=== PATIENT | female | born 1985 | race Caucasian/White ===

== ENCOUNTER 2022-12-27 07:57 | Inpatient (IN) ==
[2022-12-27] MEDS ORDERED: OXYTOCIN 30 UNITS/500 ML BAG IV PRN ×3 (09:23→20:06)
[2022-12-27] MEDS ORDERED: LIDOCAINE 1% LOCAL 20 ML VIAL INFIL PRN (09:23)
[2022-12-27] MEDS ORDERED: BUTORPHANOL TARTRATE 1 MG/ML VIAL IV PRN (09:36)
--- NOTE | 2022-12-27 09:38 | History & Physical Report ---
Date of Service December 27, 2022 Assessment & Plan (1) Anti-D antibodies present during : (2) Need for rhogam due to Rh negative mother: (3) Tobacco smoking affecting : (4) complicated by subutex maintenance, antepartum: (5) Elderly multigravida: Plan Lucille is a 37 y/o female at GA 39 0/7 who presents today for induction of labor. -Plan to proceed with induction of labor, will start pitocin -A negative/GBS negative/Rubella immune -Currently 2-3cm/70%/-2, fetus cat 1 -UDS and CBC pending, COVID negative -Can proceed with epidural when desired, Stadol ordered Admission and Anticipated Discharge Date Admission Date: December 27, 2022 History of Present Illness Chief Complaint: IOL Primary Care Provider: NO PCP Lucille is a 37 y/o female at GA 39 0/7 who presents today for induction of labor due to maternal red cell alloimmunization for concern of anemia. She also has a known two vessel cord. Lucille has a history of substance use disorder, has consented to UDS during (+positive for marijuana) and is currently prescribed Subutex. She OB and MFM care during this - did have a hiatus of care (see OB record). Today she denies contractions, loss of fluid, bleeding. Notes + movement. 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 -Gonorrhea/Chlamydia testing negative during * G1: at 40wks (12/2007) * G2: Current Allergies Allergy/AdvReac Type Severity Reaction Status Date / Time No Known Allergies Allergy Unknown Verified 12/26/22 10:36 Home Medications Medication Instructions Recorded Confirmed Type buprenorphine HCl 2 mg sublingual 8 mg sublingual DAILY 06/06/22 12/27/22 History tablet prenat.vits,vernon,kqj-mrze-rtyhn 1 tab PO DAILY 06/06/22 12/27/22 History breast pump #1 ea 10/25/22 12/26/22 Rx Patient History Medical History (Updated 08/17/22 @ 15:43 by Leatha Carrillo MD) Alcohol intoxication Alcohol intoxication History of chicken pox Left shoulder strain Suicidal ideation Suicide gesture Surgical History (Updated 06/06/22 @ 15:35 by Jahaira Santana) No history of previous surgery Family History (Updated 06/06/22 @ 15:26 by Jahaira Santana) Denies family history of Ovarian cancer Breast cancer Colorectal cancer Social History (Updated 06/06/22 @ 15:28 by Jahaira Santana) Smoking Status: Current every day smoker Tobacco Type: Cigarettes Cigarettes Per Day: 2; Second Hand Exposure: No; Hx Alcohol Use: No Hx Substance Use: No Preferred Language: Wolof Communication Ability: Effective 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 Beliefs That Will Affect Care: None marital status: Single marital status details: daria Munoz (38) [phone] Current Living Situation: Family and Significant Other Current Living Situation Comment: CARLITOS and his 3 children, her 15 yo son lives with his paternal GM current occupational status: employed current occupation: [employer] Assistive Devices: Contacts Review of Systems As per above Physical Exam Constitutional: WD/WN, vitals as above Respiratory: normal respiratory effort, lungs clear to auscultation Cardiovascular: RRR, no murmur, no edema Skin: no rashes, warm and dry Psychiatric: A+Ox3, euthymic affect Genitourinary: Manual OB Exam: + cervical dilation (2-3cm), + cervical effacement 70% and + station -2 OB Exam Monitor Tracing: + external FHT monitor used and + category I Results & Data Vital Signs (Past 12 Hours) Vital Signs Temp Pulse Resp BP 12/27/22 08:07 36.5 C 97 H 18 130/80 Supervising Physician Co-Signing Physician Notes Resident Physician Supervision Note: I interviewed and examined the patient. Discussed with Dr. Bazzi and agree with findings and plan as documented in the note. Any exceptions or clarifications are listed here: IOL, pitocin. Would like epidural. She would like to plan for one dose of stadol prior to the epidural if needed. She also takes Subutex - gets this through [facility] online. Rx is for 8mg, she states she typically takes about 2mg daily - did not take any today. Not feeling withdrawal symptoms. We discussed medication during her hospital stay - she would like to have 2mg PRN daily dose - I think this is reasonable, as this is what most closely replicates what she is using at home. Documented By: Ketty Enriquez DO Resident Activity Tracking Resident Involvement: Resident Care Provided Care Provided: OB Delivery
[2022-12-27 10:16] LABS: Mean Corpuscular Hemoglobin 30.4 pg (25.0-34.0); Mean Corpuscular Hgb Conc 33.3 g/dL (32.0-36.0); Mean Corpuscular Volume 91.2 fL (80.0-100.0); Mean Platelet Volume 9.7 fL (9.4-12.4); Platelet Count 317 K/uL (130-400); RDW Coefficient of Variation 12.4 % (11.5-14.5); RDW Standard Deviation 41.7 fL (36.4-46.3); Red Blood Count 3.29 M/uL (4.20-5.40); White Blood Count 9.06 K/ul (4.8-10.8)
[2022-12-27] MEDS: LACTATED RINGER'S 1,000 ML IV PRN ×2 (10:25→16:41)
[2022-12-27] MEDS ORDERED: SODIUM CHLORIDE 0.9% 250 ML IV PRN (11:09)
[2022-12-27 11:21] LABS: Amphetamines+Metham, Urine Neg (Neg); Barbiturates, Urine Neg (Neg); Benzodiazepine, Urine Neg (Neg); Cocaine, Urine Neg (Neg); MDMA (Ecstacy), Urine Neg (Neg); Methadone, Urine Neg (Neg); Opiate, Urine Neg (Neg); Phencyclidine, Urine Neg (Neg)
--- NOTE | 2022-12-27 15:29 | Labor Progress Brief Note ---
Date of Service December 27, 2022 Subjective Comfortable, does not desire epidural yet. FHT Cat 1 [place]ann[place] Q 2 SVE /-2 AROM clear fluid. Continue labor. OK for epidural when she desires. Assessment & Plan Admission and Anticipated Discharge Date Admission Date: December 27, 2022 Results & Data Vital Signs (Past 12 Hours) Vital Signs Temp Pulse Resp BP 12/27/22 13:14 80 12/27/22 13:14 136/79 12/27/22 11:35 16 12/27/22 11:35 36.7 C 16 12/27/22 11:35 72 12/27/22 11:35 116/77 12/27/22 10:25 85 12/27/22 10:25 119/77 12/27/22 08:07 36.5 C 97 H 18 130/80 Coding Level of Care Code None Diagnoses
[2022-12-27] MEDS ORDERED: fentaNYL citrate PF 100 MCG/2 ML VIAL ONE (15:35)
[2022-12-27] MEDS ORDERED: ePHEDrine sulfate 50 MG/ML AMP ONE (15:35)
[2022-12-27] MEDS ORDERED: LIDOCAINE 2%/EPINEPHRINE 1:200,000 20 ML PF ONE (15:36)
[2022-12-27] MEDS ORDERED: fentaNYL 2MCG/ML ROPIVACAINE 1.25MG/ML 100 ML BAG EPI ONE (15:36)
[2022-12-27] MEDS ORDERED: SODIUM CHLORIDE 0.9% PF INJ 10 ML VIAL ONE (15:36)
[2022-12-27] MEDS ORDERED: BUPIVACAINE 0.25% PF 30 ML VIAL ONE (15:36)
--- NOTE | 2022-12-27 16:16 | Anesthesiology Consultation ---
Date of Service December 27, 2022 Assessment & Plan Chart Review Chart Review: Acceptable Risk for Labor Epidural Consults Requested none ASA ASA2 Proposed Anesthesia Anesthesia Type: Labor Epidural Risk / Benefits Reviewed With: PT / POA / Parent / Guardian, Accepts Plan and Informed Consent Obtained History Height/Weight Height: 5 ft 3 in Weight: 60.6 kg Allergies Allergy/AdvReac Type Severity Reaction Status Date / Time No Known Allergies Allergy Unknown Verified 12/26/22 10:36 Medications Home Medications Medication Instructions Recorded Confirmed Last Taken buprenorphine HCl 2 mg sublingual 8 mg sublingual DAILY 06/06/22 12/27/22 12/26/22 14:00 tablet prenat.vits,vernon,vas-emjx-adqhe 1 tab PO DAILY 06/06/22 12/27/22 12/26/22 breast pump #1 ea 10/25/22 12/26/22 Unknown Active Medications Generic Name Dose Route Start Last Admin Trade Name Freq PRN Reason Stop Dose Admin Butorphanol Tartrate 1 mg 12/27/22 09:36 12/27/22 15:52 Butorphanol Tartrate 1 Mg/Ml Vial IV 01/26/23 09:35 1 mg Q2HWA PRN Administration Pain Lactated Ringer's 1,000 mls @ 125 mls/hr 12/27/22 09:23 12/27/22 10:25 Lr IV 12/29/22 09:22 125 mls/hr .Q8H PRN Administration L&D Protocol Protocol Oxytocin 30 units in 500 mls @ 9 mls/hr 12/27/22 09:23 12/27/22 12:46 Pitocin IV 12/29/22 09:22 0.54 units/hr .Q24H PRN 9 mls/hr Labor Induction/Augmentation Titration Protocol 0.54 UNITS/HR NPO Date Last Intake of Fluids: 12/27/22 Time Last Intake of Fluids: 07:00 Date Last Intake of Solids: 12/27/22 Time Last Intake of Solids: 07:00 Past Medical History Medical History Alcohol intoxication Alcohol intoxication History of chicken pox Left shoulder strain Suicidal ideation Suicide gesture Exercise / Class Metabolic Activity II 4-5 Yardwork/Stairs/Walk up hill Past Family History Family History Denies family history of Ovarian cancer Breast cancer Colorectal cancer Past Surgical History Surgical History No history of previous surgery Past Anesthesia History No Hx of Anesthesia Complications and No Family Hx of Anesthesia Complications History of PONV No Hx of PONV and No Hx of Motion Sickness Social History Smoking Status: Current every day smoker tobacco type: cigarettes Smoking cigarettes per day: 2 Hx Alcohol Use: No Hx Substance Use: No substance use type: former substance user Physical Exam Vital Signs Last Vital Signs Temp 36.7 C 12/27/22 15:32 Pulse 78 12/27/22 16:08 Resp 18 12/27/22 15:32 BP 112/74 12/27/22 15:28 Pulse Ox 93 12/27/22 16:08 ENMT Mouth: + small oral opening; no TMJ abnormality Thyromental Distance: > or= 3.5 Finger Breadths Mallampati Class: II Neck normal visual inspection and trachea midline; neck extension not limited Respiratory normal respiratory effort Auscultation: lungs clear to auscultation bilaterally Cardiovascular Rate/Rhythm: regular rate and regular rhythm Heart Sounds: no murmur Musculoskeletal Spine: normal cervical ROM Extremities: full ROM of extremities Neurologic moves all extremities Psychiatric Orientation: alert and oriented x 3 Testing Laboratory Results 12/27/22 09:37 Blood Type A Negative 12/27/22 09:37 Antibody Screen POSITIVE A 12/27/22 09:37
[2022-12-27] MEDS ORDERED: ONDANSETRON INJ 2 MG/ML 2 ML VIAL IV PRN (16:18)
[2022-12-27] MEDS ORDERED: NALBUPHINE HCL INJ 10 MG/ML AMP IV PRN (16:18)
[2022-12-27] MEDS ORDERED: METOCLOPRAMIDE HCL 20 MG in SODIUM CHLORIDE 0.9% 50 ML IV PRN (16:18)
[2022-12-27] MEDS ORDERED: NALOXONE HCL 0.4 MG/1 ML VIAL/CARP IV PRN (16:18)
[2022-12-27] MEDS ORDERED: ePHEDrine sulfate 50 MG/ML AMP IV PRN (16:18)
[2022-12-27] MEDS ORDERED: fentaNYL 2MCG/ML ROPIVACAINE 1.25MG/ML 100 ML BAG EPI PRN (16:18)
[2022-12-27] MEDS ORDERED: NALOXONE HCL 1 MG in SODIUM CHLORIDE 0.9% 1000ML 1,000 ML IV PRN (16:18)
[2022-12-27] MEDS ORDERED: diphenhydrAMINE 50 MG/ML VIAL IV PRN (16:18)
--- NOTE | 2022-12-27 17:38 | Labor Progress Brief Note ---
Date of Service December 27, 2022 Subjective Comfortable with epidural. FHT Cat 1 [place] 2-3 SVE //-1 Continue labor Assessment & Plan Admission and Anticipated Discharge Date Admission Date: December 27, 2022 Results & Data Vital Signs (Past 12 Hours) Vital Signs Temp Pulse Resp BP Pulse Ox 12/27/22 15:32 36.7 C 18 12/27/22 17:36 98 12/27/22 17:36 78 12/27/22 17:36 107/69 12/27/22 17:31 99 12/27/22 17:31 72 12/27/22 17:26 99 12/27/22 17:26 69 12/27/22 17:21 99 12/27/22 17:21 84 12/27/22 17:21 80 12/27/22 17:21 121/58 L 12/27/22 17:16 99 12/27/22 17:16 105 H 12/27/22 17:11 100 12/27/22 17:11 74 12/27/22 17:07 91 12/27/22 17:07 75 12/27/22 17:06 97 12/27/22 17:06 76 12/27/22 17:03 69 12/27/22 17:03 107/74 12/27/22 17:01 100 12/27/22 17:01 78 12/27/22 16:20 18 12/27/22 16:20 18 12/27/22 17:00 75 12/27/22 17:00 115/70 12/27/22 16:56 100 12/27/22 16:56 73 12/27/22 16:57 71 12/27/22 16:57 111/65 12/27/22 16:54 75 12/27/22 16:54 121/76 12/27/22 16:52 92 12/27/22 16:52 82 12/27/22 16:51 97 12/27/22 16:51 81 12/27/22 16:51 71 12/27/22 16:51 112/62 12/27/22 16:48 82 12/27/22 16:48 123/64 12/27/22 16:46 99 12/27/22 16:46 82 12/27/22 16:45 92 12/27/22 16:45 77 12/27/22 16:45 80 12/27/22 16:45 115/74 12/27/22 16:41 99 12/27/22 16:41 77 12/27/22 16:42 74 12/27/22 16:42 121/76 12/27/22 16:40 92 12/27/22 16:40 83 12/27/22 16:39 82 12/27/22 16:39 118/73 12/27/22 16:36 99 12/27/22 16:36 73 12/27/22 16:36 115/72 12/27/22 16:35 92 12/27/22 16:35 68 12/27/22 16:36 83 12/27/22 16:36 110/75 12/27/22 16:33 81 12/27/22 16:33 111/69 12/27/22 16:32 85 12/27/22 16:32 142/68 H 12/27/22 16:31 90 12/27/22 16:31 88 12/27/22 16:26 100 12/27/22 16:27 91 12/27/22 16:26 92 H 12/27/22 16:27 92 H 12/27/22 16:21 94 12/27/22 16:21 84 12/27/22 16:14 93 12/27/22 16:14 81 12/27/22 16:12 99 12/27/22 16:12 78 12/27/22 16:07 98 12/27/22 16:08 93 12/27/22 16:07 84 12/27/22 16:08 78 12/27/22 16:02 97 12/27/22 16:02 75 12/27/22 15:28 70 12/27/22 15:28 112/74 12/27/22 13:14 80 12/27/22 13:14 136/79 12/27/22 11:35 16 12/27/22 11:35 36.7 C 16 12/27/22 11:35 72 12/27/22 11:35 116/77 12/27/22 10:25 85 12/27/22 10:25 119/77 12/27/22 08:07 36.5 C 97 H 18 130/80 Coding Level of Care Code None Diagnoses
--- NOTE | 2022-12-27 20:03 | Delivery Summary ---
Vaginal Delivery Summary Date of Service December 27, 2022 Vaginal Delivery Summary [facility] Vaginal Delivery Summary: Pre-delivery diagnoses: 37yo @ 39 0/7, IOL for Antibody screen +Anti D, AMA, subutex use, smoker, 2-vessel cord Post-delivery diagnoses: same Procedure: spontaneous vaginal delivery Surgeon: Ketty Enriquez DO Complications: none Findings: Viable female . Apgars: 8/9 . Weight pending, please see nursery records Estimated blood loss: 300ml Description of delivery: The patient progressed to complete with epidural anesthesia. She then began to push. She spontaneously vaginally delivered a viable from the cephalic presentation. The head delivered in YOLANDA position. The anterior shoulder delivered, followed by the posterior shoulder, followed by the body. No nuchal cord. The baby was placed on mother's abdomen and a spontaneous cry was heard. Delayed cord clamping was employed, and the cord was doubly clamped and cut. Cord blood was obtained. The placenta was delivered spontaneously intact with a 3-vessel cord. The uterus and vagina were swept of clots and debris. IV pitocin was given. The uterus became firm. The cervix, vagina, and perineum were inspected and no lacerations were noted. Excellent hemostasis was observed. The mother and baby are recovering in stable and good condition in the room. Sponge and instrument counts were correct x 2. Ketty Enriquez DO [facility] Vaginal Delivery Charge Vaginal Delivery Codes: 63979 global code for the antepartum, delivery, and post- Delivery Type Details: [facility]
[2022-12-27] MEDS ORDERED: oxyCODONE/ACETAMINOPHEN 5mg/325mg TAB PO PRN (20:06)
[2022-12-27] MEDS ORDERED: bisacodyL 10 MG SUPP PR PRN (20:06)
[2022-12-27] MEDS ORDERED: BENZOCAINE 20% AER SPR 82.5 GM CAN EXT PRN (20:06)
[2022-12-27] MEDS ORDERED: HYDROCORTISONE ACETATE 25 MG SUPP PR PRN (20:06)
[2022-12-27] MEDS ORDERED: DIPHTHERIA/TETANUS/PERTUSSIS 0.5mL SYR/VIAL (Age 7+yrs) IM ONE (20:06)
--- NOTE | 2022-12-27 20:26 | Anesthesia Procedure Note ---
Date of Service December 27, 2022 Anesthesia Post Epidural Note Vital Signs Vital Signs: Temp Pulse Resp BP Pulse Ox 36.7 C 86 16 129/78 89 L 12/27/22 19:05 12/27/22 19:53 12/27/22 20:15 12/27/22 19:45 12/27/22 19:53 Pain Intensity Abdomen: Pain Intensity: 7 Notes Mental Status: alert / awake / arousable and participated in evaluation Nausea / Vomiting: adequately controlled Pain: adequately controlled Airway Patency, RR, SpO2: stable & adequate BP & HR: stable & adequate Hydration State: stable & adequate Neuraxial Anesthesia: was administered and sensory block is resolving Anesthetic Complications: no major complications apparent and Pt Satisfied with anesthetic care Epidural: Removed without complications and With tip intact
[2022-12-27] MEDS: buprenorphine HCL 2 MG SUBL SL PRN (23:21)
[2022-12-27] MEDS: DOCUSATE SODIUM 100 MG CAP PO SCH (23:21)
[2022-12-27] MEDS: IBUPROFEN 600 MG TAB PO PRN (23:58)
[2022-12-28] MEDS: IBUPROFEN 600 MG TAB PO PRN ×3 (03:51→14:39)
--- NOTE | 2022-12-28 07:10 | Obstetrical Progress Note ---
Date of Service December 28, 2022 Assessment & Plan (1) Anti-D antibodies present during : (2) Need for rhogam due to Rh negative mother: (3) Tobacco smoking affecting : (4) complicated by subutex maintenance, antepartum: Plan Lucille is a 37 y/o female who is PPD#1 following delivery at 39 0/7. -Meeting all milestones -Vitals reviewed and WNL -A negative/GBS negative/Rubella immune -Follow up in 6 weeks for appointment -Continue routine care Admission and Anticipated Discharge Date Admission Date: December 27, 2022 Supervising Physician Co-Signing Physician Notes Resident Physician Supervision Note: I interviewed and examined the patient. Discussed with Dr. Bazzi and agree with findings and plan as documented in the note. Any exceptions or clarifications are listed here: PPD#1 doing well. Might desire DC home today. Documented By: Ketty Enriquez, DO Subjective Lucille is a 37 y/o female who is PPD#1 following delivery at 39 0/7. Her was complicated by AMA, hx of substance use (maintained on Subutex) and Rh negative status. She reports feeling well overall this morning. Pain well managed on analgesics. Voiding without issue. Tolerating meals overnight and able to ambulate some. Has some persistent lochia with some improvement this morning. Review of Systems Constitutional: no fever, no chills and no sweats Respiratory: no cough, no dyspnea and no wheezing Cardiovascular: no chest pain, no palpitations and no calf pain Genitourinary: no dysuria Neurologic: no headache(s) Physical Exam Constitutional: WD/WN, vitals as above no acute distress Respiratory: no respiratory distress Auscultation: lungs clear to ausculta tion bilaterally; no rales, no rhonchi and no wheezes Cardiovascular: RRR, no murmur, no edema Extremities: no calf tenderness and no edema Negative Ricardo's sign bilaterally. Gastrointestinal (Abdomen): Inspection/Auscultation: normal bowel sounds Genitourinary: Uterine fundus firm, palpable below the umbilicus. Results & Data Vital Signs (Past 12 Hours) Vital Signs Temp Pulse Pulse Resp BP BP Pulse Ox 12/28/22 03:47 36.6 C 86 16 113/76 12/27/22 23:32 36.8 C 89 16 109/70 12/27/22 21:45 16 12/27/22 21:15 18 12/27/22 20:45 16 12/27/22 20:30 16 12/27/22 20:15 16 12/27/22 20:00 16 12/27/22 19:45 18 12/27/22 19:53 89 L 12/27/22 19:53 86 12/27/22 19:51 99 12/27/22 19:51 79 12/27/22 19:47 91 12/27/22 19:47 93 H 12/27/22 19:46 100 12/27/22 19:46 92 H 12/27/22 19:45 86 12/27/22 19:45 129/78 12/27/22 19:41 97 12/27/22 19:41 86 12/27/22 19:41 92 12/27/22 19:41 85 12/27/22 19:36 97 12/27/22 19:36 82 12/27/22 19:36 86 12/27/22 19:36 122/74 12/27/22 19:32 94 12/27/22 19:32 89 12/27/22 19:31 87 L 12/27/22 19:31 90 12/27/22 19:26 99 12/27/22 19:27 93 12/27/22 19:26 78 12/27/22 19:27 80 12/27/22 19:21 97 12/27/22 19:21 87 12/27/22 19:20 82 12/27/22 19:20 116/85 12/27/22 19:16 85 L 12/27/22 19:16 83 12/27/22 19:14 87 L 12/27/22 19:14 80 12/27/22 19:11 100 12/27/22 19:11 78 O2 Del Method 12/28/22 03:47 Room Air 12/27/22 23:32 Room Air 12/27/22 21:45 12/27/22 21:15 12/27/22 20:45 12/27/22 20:30 12/27/22 20:15 12/27/22 20:00 12/27/22 19:45 12/27/22 19:53 12/27/22 19:53 12/27/22 19:51 12/27/22 19:51 12/27/22 19:47 12/27/22 19:47 12/27/22 19:46 12/27/22 19:46 12/27/22 19:45 12/27/22 19:45 12/27/22 19:41 12/27/22 19:41 12/27/22 19:41 12/27/22 19:41 12/27/22 19:36 12/27/22 19:36 12/27/22 19:36 12/27/22 19:36 12/27/22 19:32 12/27/22 19:32 12/27/22 19:31 12/27/22 19:31 12/27/22 19:26 12/27/22 19:27 12/27/22 19:26 12/27/22 19:27 12/27/22 19:21 12/27/22 19:21 12/27/22 19:20 12/27/22 19:20 12/27/22 19:16 12/27/22 19:16 12/27/22 19:14 12/27/22 19:14 12/27/22 19:11 12/27/22 19:11 Resident Activity Tracking Resident Involvement: Resident Care Provided Care Provided: OB Delivery
[2022-12-28] MEDS ORDERED: PRENATAL VITAMIN 1 TAB PO SCH (08:00)
[2022-12-28] MEDS: DOCUSATE SODIUM 100 MG CAP PO SCH (09:14)
[2022-12-28] MEDS: ACETAMINOPHEN 325 MG TAB PO PRN ×2 (11:49→17:42)
[2022-12-28] MEDS: buprenorphine HCL 2 MG SUBL SL PRN (17:42)
[2022-12-28] MEDS ORDERED: bisacodyL 5 MG TABEC PO SCH (20:00)
== END 2022-12-28 18:47 | disposition home or self-care (01) | DRG 806 ==
LOC: 4S1 07:57 → 4E2 23:34